=== PATIENT | female | born 1995 | race Two or more races ===

== ENCOUNTER 2024-10-04 12:08 | Inpatient (IN) | payer OTHER ==
[2024-10-04] MEDS ORDERED: Acetaminophen 325 MG Tab PO PRN (13:43)
[2024-10-04] MEDS ORDERED: Ondansetron 4 MG/2 ML SDV IVPUSH PRN (13:43)
[2024-10-04] MEDS ORDERED: Nalbuphine 10 MG/1 ML Vial IVPUSH PRN (13:43)
[2024-10-04] MEDS ORDERED: Lidocaine 1% 50 ML MDV INJECT PRN (13:43)
[2024-10-04] MEDS ORDERED: Sodium Chloride 0.9% 10 ML Syringe FLUSH PRN (13:43)
[2024-10-04] MEDS ORDERED: Calcium Carbonate 500 MG Tab.Chew PO PRN (13:43)
[2024-10-04] MEDS ORDERED: Oxytocin/0.9 % Sodium Chloride 30 UNIT/500 ML BAG IV SCH (13:45)
[2024-10-04 14:09] LABS: BASOPHILS PERCENT AUTO 0.4 % (0.0-1.0); EOSINOPHILS ABSOLUTE AUTO 0.1 K/mm3 (0.0-0.4); EOSINOPHILS PERCENT AUTO 0.6 % (0.0-6.0); HEMATOCRIT 38.8 % (37.0-47.0); HEMOGLOBIN 12.5 gm/dl (12.0-16.0); IMMATURE GRAN ABSOLUTE AUTO 0.09 K/mm3 (0.00-0.05); IMMATURE GRAN PERCENT AUTO 0.9 % (0.0-0.4); LYMPHOCYTES PERCENT AUTO 20.8 % (24.0-44.0); MEAN CORPUSCULAR HEMOGLOBIN 26.9 pg (28.0-32.0); MEAN CORPUSCULAR HGB CONC 32.2 g/dl (32.0-36.0); MEAN CORPUSCULAR VOLUME 83.4 fl (83.0-99.0); MEAN PLATELET VOLUME 10.7 fl (9.4-12.3); MONOCYTES ABSOLUTE AUTO 0.9 K/mm3 (0.0-0.8); MONOCYTES PERCENT AUTO 8.9 % (0.0-8.0); NEUTROPHILS ABSOLUTE AUTO 6.5 K/mm3 (1.8-7.7); NEUTROPHILS PERCENT AUTO 68.4 % (41.0-71.0); PLATELET COUNT,PLT 283 K/mm3 (150-400); RED BLOOD CELL COUNT 4.65 M/mm3 (4.10-5.30); WHITE BLOOD CELL COUNT,WBC 9.51 K/mm3 (3.9-11.3)
[2024-10-04] MEDS: Lactated Ringers 1,000 ML IV SCH (15:25)
[2024-10-04] MEDS: Penicillin G Potassium 5 MILLUNITS in Sodium Chloride 0.9% 100 ML IV ONE (15:28)
[2024-10-04] MEDS: Oxytocin/0.9 % Sodium Chloride 30 UNIT/500 ML BAG IV SCH (16:19)
[2024-10-04] MEDS: Penicillin G Potassium 2.5 MILLUNITS in Sodium Chloride 0.9% 100 ML IV SCH (20:05)
[2024-10-04] MEDS ORDERED: diphenhydrAMINE 50 MG/ML SDV IVPUSH PRN (20:50)
[2024-10-04] MEDS: Bupivacaine/fentaNYL/NS 100 ML Bag EPIDUR PRN (21:23)
[2024-10-04] MEDS: Sodium Chloride 0.9% 10 ML Syringe FLUSH SCH (23:03)
[2024-10-05] MEDS: ePHEDrine 50 MG/ML SDV IVPUSH PRN (01:03)
[2024-10-05] MEDS ORDERED: Sodium Chloride 0.9% 10 ML Syringe FLUSH PRN (07:08)
[2024-10-05] MEDS ORDERED: Ketorolac 30 MG/ML SDV ONE (07:14)
[2024-10-05] MEDS ORDERED: Dexamethasone 4 MG/ML SDV ONE (07:14)
[2024-10-05] MEDS ORDERED: Ondansetron 4 MG/2 ML SDV ONE ×2 (07:14→08:03)
[2024-10-05] MEDS ORDERED: ePHEDrine 50 MG/ML SDV ONE (07:14)
[2024-10-05] MEDS ORDERED: Morphine PF 10 MG/10 ML SDV ONE (07:14)
[2024-10-05] MEDS ORDERED: Lactated Ringers 1,000 ML IV SCH (07:15)
[2024-10-05] MEDS: Metoclopramide 10 MG/2 ML SDV IVPUSH ONE (07:20)
[2024-10-05] MEDS: Azithromycin 500 MG in Sodium Chloride 0.9% 250 ML IV ONE (07:21)
[2024-10-05] MEDS: Citric Acid/Sodium Citrate Solution 30 ML Cup PO ONE (07:26)
[2024-10-05] MEDS ORDERED: Lidocaine 2% with EPINEPHrine 1:200,000 20 ML SDV ONE (07:29)
[2024-10-05] MEDS ORDERED: ceFAZolin 2 GM Vial ONE ×2 (07:45)
[2024-10-05] MEDS ORDERED: Meperidine 50 MG/ML Vial IVPUSH PRN (08:18)
[2024-10-05] MEDS ORDERED: diphenhydrAMINE 50 MG/ML SDV IVPUSH PRN ×2 (08:18→08:50)
[2024-10-05] MEDS ORDERED: fentaNYL 100 MCG/2 ML SDV IVPUSH PRN (08:18)
[2024-10-05] MEDS ORDERED: Ondansetron 4 MG/2 ML SDV IVPUSH PRN (08:18)
[2024-10-05] MEDS: Ibuprofen 800 MG Tab PO SCH (08:30)
[2024-10-05] MEDS ORDERED: Naloxone 0.4 MG/ML SDV IVPUSH PRN (08:50)
[2024-10-05] MEDS ORDERED: ePHEDrine 50 MG/ML SDV IVPUSH PRN (08:50)
[2024-10-05] MEDS: ceFAZolin 2 GM in Sodium Chloride 0.9% 50 ML IV ONE (10:50)
[2024-10-05] MEDS: ceFAZolin 2 GM Vial IVPUSH ONE (10:51)
[2024-10-05] MEDS: Sodium Chloride 0.9% 10 ML Syringe FLUSH SCH (10:53)
[2024-10-05] MEDS: Dextrose 5%-Lactated Ringers 1,000 ML IV SCH (11:01)
[2024-10-05] MEDS: oxyCODONE 5 MG Tab PO PRN (20:26)
[2024-10-05] MEDS: Sennosides 8.6 MG Tab PO SCH (20:26)
[2024-10-05] MEDS: Simethicone 80 MG Tab.Chew PO PRN (21:15)
[2024-10-06 06:59] LABS: HEMATOCRIT 30.2 % (37.0-47.0); HEMOGLOBIN 9.7 gm/dl (12.0-16.0); MEAN CORPUSCULAR HEMOGLOBIN 27.2 pg (28.0-32.0); MEAN CORPUSCULAR HGB CONC 32.1 g/dl (32.0-36.0); MEAN CORPUSCULAR VOLUME 84.6 fl (83.0-99.0); PLATELET COUNT,PLT 239 K/mm3 (150-400); RED BLOOD CELL COUNT 3.57 M/mm3 (4.10-5.30); WHITE BLOOD CELL COUNT,WBC 12.79 K/mm3 (3.9-11.3)
[2024-10-07] MEDS: Ferrous Sulfate 324 MG Tab.EC PO SCH (09:46)
[2024-10-07] MEDS: Polyethylene Glycol 3350 Powder 17 GM Packet PO PRN (09:47)
[2024-10-07] MEDS: Bisacodyl 10 MG Supp RECTAL PRN (21:26)
== END 2024-10-08 12:40 | disposition home or self-care (01) | DRG 787 ==
LOC: JD.OBCHECK 12:08 → JD.OB 13:43 → OBSVTOIN 10-05 08:08
PROVIDERS: ADMIT Obstetrics & Gynecology; ATTEND Obstetrics & Gynecology
PROC: 10D00Z1 Extraction of Products of Conception, Low, Open Approach (ICD-10-PCS; principal; 2024-10-05 07:30)
PROC: 3E0R3BZ Introduction of Anesthetic Agent into Spinal Canal, Percutaneous Approach (ICD-10-PCS; principal; 2024-10-05 07:30)
DX: O99.214 Obesity complicating childbirth (principal); D62 Acute posthemorrhagic anemia; Z3A.37 37 weeks gestation of pregnancy; Z37.0 Single live birth; E66.01 Morbid (severe) obesity due to excess calories; Z79.82 Long term (current) use of aspirin; Z79.899 Other long term (current) drug therapy
CPT/HCPCS: 01967; 01968; 36415; 51702; 59025; 84112; 85025; 85027; 86592; 86850; 86900; 86901; 99140; A9270-GY; J0456; J0690; J1100; J1885; J2274; J2405; J2540; J2765; J3490; J7050; J7120; J7121; J7999